=== PATIENT | female | born 1965 | race Two or more races ===

== ENCOUNTER 2019-05-09 19:29 | Emergency (ER) | payer SELFPAY ==
[~2019-05-09] VITALS: Ht 167.6 cm; Wt 63.5 kg
[2019-05-09] MEDS ORDERED: ONDANSETRON PF 4 MG/2 ML VIAL. IV ONE (20:15)
[2019-05-09] MEDS ORDERED: MORPHINE SULFATE 2 MG/ML VIAL. IV ONE (20:15)
[2019-05-09] MEDS ORDERED: IV NORMAL SALINE 1000ML BAG 1,000 ML IV ONE (20:15)
[2019-05-09 20:16] LABS: BILIRUBIN,URINE NEGATIVE (NEG); CLARITY,URINE CLEAR; COLOR,URINE YELLOW; NITRITE,URINE NEGATIVE (NEG); PH,URINE 6.5; PROTEIN,URINE NEGATIVE (NEG-TRACE); UROBILINOGEN,URINE 0.2 mg/dL (0.2 mg/dL)
[2019-05-09 20:19] LABS: AMPHETAMINE/METHAMPHETAMINE NEG (NEG); BARBITURATES NEG (NEG); BENZODIAZEPINES NEG (NEG); CANNABINOIDS NEG (NEG); COCAINE NEG (NEG); METHADONE NEG (NEG); OPIATES NEG (NEG); PHENCYCLIDINE NEG (NEG)
[2019-05-09 20:22] LABS: SQUAMOUS EPITHELIAL CELL,UR FEW /LPF
[2019-05-09 20:24] LABS: BASO # 0.1 x10^3/uL (0.0-0.2); BASO % 1 % (0-3); EOS # 0.3 x10^3/uL (0.0-0.7); EOS % 3 % (0-3); HEMATOCRIT 38.4 % (36.0-47.0); HEMOGLOBIN 12.7 g/dL (12.0-15.5); LYMPH % 39 % (24-48); MEAN CORPUSCULAR HEMOGLOBIN 26 pg (25-35); MEAN CORPUSCULAR HGB CONC 33 g/dL (31-37); MEAN CORPUSCULAR VOLUME 78 fL (79-100); MONO # 0.9 x10^3/uL (0.0-1.1); MONO % 9 % (0-9); NEUT # 4.8 x10^3/uL (1.8-7.7); NEUT % 47 % (31-73); PLATELET COUNT 344 x10^3/uL (140-400); RED BLOOD COUNT 4.94 x10^6/uL (3.50-5.40); RED CELL DISTRIBUTION WIDTH 14.6 % (11.5-14.5); WHITE BLOOD COUNT 10.3 x10^3/uL (4.0-11.0)
[2019-05-09 20:27] LABS: BACTERIA,URINE FEW /HPF (0-FEW); RBC,URINE 0 /HPF (0-2)
[2019-05-09] MEDS ORDERED: cefTRIAXone IV Push 1 GM VIAL. IVP ONE (21:00)
[2019-05-09 22:43] LABS: CALCIUM 8.6 mg/dL (8.5-10.1); CREATININE 0.6 mg/dL (0.6-1.0); GFR 104.6; POTASSIUM 4.1 mmol/L (3.5-5.1)
[2019-05-09 22:48] LABS: ALBUMIN 3.5 g/dL (3.4-5.0); ALBUMIN/GLOBULIN RATIO 0.9 (1.0-1.7); TOTAL BILIRUBIN 0.2 mg/dL (0.2-1.0); TOTAL PROTEIN 7.6 g/dL (6.4-8.2)
[2019-05-09] MEDS ORDERED: CEPH500T PO (22:55)
--- NOTE | 2019-05-09 22:55 | PHYS DOC ---
Past Medical History Past Medical History: No Pertinent History Past Surgical History: No Surgical History Alcohol Use: None Drug Use: None Adult General Chief Complaint Chief Complaint: ABDOMINAL PAIN HPI HPI Patient is a 53 year old Female with no significant medical history who presents to the ED today complaining of 8 out of 10 left flank pain radiating to the left lower quadrant that began 2-3 days ago. She describes the pain as sharp and intermittent, denies any exacerbating or relieving factors. Denies any nausea vomiting. Denies any personal history of kidney stones. Denies any hematuria. Review of Systems Review of Systems Constitutional: Denies fever or chills [] Eyes: Denies change in visual acuity, redness, or eye pain [] HENT: Denies nasal congestion or sore throat [] Respiratory: Denies cough or shortness of breath [] Cardiovascular: No additional information not addressed in HPI [] GI: reports left lower quadrant abdominal pain, deniesnausea, vomiting, bloody stools or diarrhea [] : Reports left flank pain.Denies dysuria or hematuria [] Musculoskeletal: Denies back pain or joint pain [] Integument: Denies rash or skin lesions [] Neurologic: Denies headache, focal weakness or sensory changes [] All other systems were reviewed and found to be within normal limits, except as documented in this note. Current Medications Current Medications Current Medications Medications (Trade) Dose Ordered Sig/Adina Start Time Stop Time Status Last Admin Dose Admin Ceftriaxone Sodium (Rocephin) 1 gm 1X ONCE 05/09/19 21:00 05/09/19 21:01 DC 05/09/19 21:56 1 GM Morphine Sulfate (Morphine Sulfate) 2 mg 1X ONCE 05/09/19 20:15 05/09/19 20:19 DC 05/09/19 20:31 2 MG Ondansetron HCl (Zofran) 4 mg 1X ONCE 05/09/19 20:15 05/09/19 20:19 DC 05/09/19 20:31 4 MG Sodium Chloride 1,000 ml @ 1,000 mls/hr 1X ONCE 05/09/19 20:15 05/09/19 21:14 DC 05/09/19 20:31 1,000 MLS/HR Allergies Allergies Allergies Coded Allergies Type Severity Reaction Last Updated Verified No Known Drug Allergies 05/09/19 No Physical Exam Physical Exam Constitutional: Well developed, well nourished, no acute distress, non-toxic appearance. [] HENT: Normocephalic, atraumatic, bilateral external ears normal, oropharynx moist, no oral exudates, nose normal. [] Eyes: PERRLA, EOMI, conjunctiva normal, no discharge. [] Neck: Normal range of motion, no tenderness, supple, no stridor. [] Cardiovascular:Heart rate regular rhythm, no murmur [] Lungs & Thorax: Bilateral breath sounds clear to auscultation [] Abdomen: Bowel sounds normal, soft, no tenderness, no masses, no pulsatile masses. [] Skin: Warm, dry, no erythema, no rash. [] Back: No tenderness,mild left CVA tenderness. [] Extremities: No tenderness, no cyanosis, no clubbing, ROM intact, no edema. [] Neurologic: Alert and oriented X 3, normal motor function, normal sensory function, no focal deficits noted. [] Psychologic: Affect normal, judgement normal, mood normal. [] Current Patient Data Vital Signs Vital Signs Date Time Temp Pulse Resp B/P (MAP) Pulse Ox O2 Delivery O2 Flow Rate FiO2 05/09/19 20:31 16 98 Room Air 05/09/19 19:52 97.7 73 138/76 (96) 97.7 Lab Values Laboratory Tests Test 05/09/19 20:00 05/09/19 20:15 05/09/19 21:55 Urine Collection Type Unknown Urine Color Yellow Urine Clarity Clear Urine pH 6.5 Urine Specific [place] 1.010 Urine Protein Negative mg/dL (NEG-TRACE) Urine Glucose (UA) Negative mg/dL (NEG) Urine Ketones (Stick) Negative mg/dL (NEG) Urine Blood Small (NEG) Urine Nitrite Negative (NEG) Urine Bilirubin Negative (NEG) Urine Urobilinogen Dipstick 0.2 mg/dL (0.2 mg/dL) Urine Leukocyte Esterase Moderate (NEG) Urine RBC 0 /HPF (0-2) Urine WBC 1-4 /HPF (0-4) Urine Squamous Epithelial Cells Few /LPF Urine Bacteria Few /HPF (0-FEW) Urine Opiates Screen Neg (NEG) Urine Methadone Screen Neg (NEG) Urine Barbiturates Neg (NEG) Urine Phencyclidine Screen Neg (NEG) Urine Amphetamine/Methamphetamine Neg (NEG) Urine Benzodiazepines Screen Neg (NEG) Urine Cocaine Screen Neg (NEG) Urine Cannabinoids Screen Neg (NEG) Urine Ethyl Alcohol Neg (NEG) White Blood Count 10.3 x10^3/uL (4.0-11.0) Red Blood Count 4.94 x10^6/uL (3.50-5.40) Hemoglobin 12.7 g/dL (12.0-15.5) Hematocrit 38.4 % (36.0-47.0) Mean Corpuscular Volume 78 fL (79-100) L Mean Corpuscular Hemoglobin 26 pg (25-35) Mean Corpuscular Hemoglobin Concent 33 g/dL (31-37) Red Cell Distribution Width 14.6 % (11.5-14.5) H Platelet Count 344 x10^3/uL (140-400) Neutrophils (%) (Auto) 47 % (31-73) Lymphocytes (%) (Auto) 39 % (24-48) Monocytes (%) (Auto) 9 % (0-9) Eosinophils (%) (Auto) 3 % (0-3) Basophils (%) (Auto) 1 % (0-3) Neutrophils # (Auto) 4.8 x10^3/uL (1.8-7.7) Lymphocytes # (Auto) 4.0 x10^3/uL (1.0-4.8) Monocytes # (Auto) 0.9 x10^3/uL (0.0-1.1) Eosinophils # (Auto) 0.3 x10^3/uL (0.0-0.7) Basophils # (Auto) 0.1 x10^3/uL (0.0-0.2) Sodium Level 140 mmol/L (136-145) Potassium Level 4.1 mmol/L (3.5-5.1) Chloride Level 106 mmol/L (98-107) Carbon Dioxide Level 23 mmol/L (21-32) Anion Gap 11 (6-14) Blood Urea Nitrogen 13 mg/dL (7-20) Creatinine 0.6 mg/dL (0.6-1.0) Estimated GFR (Cockcroft-Gault) 104.6 BUN/Creatinine Ratio 22 (6-20) H Glucose Level 93 mg/dL (70-99) Calcium Level 8.6 mg/dL (8.5-10.1) Total Bilirubin 0.2 mg/dL (0.2-1.0) Aspartate Amino Transferase (AST) 16 U/L (15-37) Alanine Aminotransferase (ALT) 25 U/L (14-59) Alkaline Phosphatase 86 U/L (46-116) Total Protein 7.6 g/dL (6.4-8.2) Albumin 3.5 g/dL (3.4-5.0) Albumin/Globulin Ratio 0.9 (1.0-1.7) L Lipase 151 U/L (73-393) Ethyl Alcohol Level < 10 mg/dL (0-10) Laboratory Tests 05/09/19 20:15 Laboratory Tests 05/09/19 21:55 EKG EKG [] Radiology/Procedures Radiology/Procedures [] Course & Med Decision Making Course & Med Decision Making Pertinent Labs and Imaging studies reviewed. (See chart for details) This is a 53-year-old female patient presenting to the ED today with left flank pain radiating to the left lower quadrant for 2-3 days. CBC with a normal WBC, CMP with no acute findings, urine analysis is noted for moderate amount of leukocytes. Patient was discharged on cephalexin, given Rocephin in the ED. Instructed to push fluids. Follow-up with PCP in 1-2 weeks. Dragon Disclaimer Dragon Disclaimer This electronic medical record was generated, in whole or in part, using a voice recognition dictation system. Departure Departure Impression: Primary Impression: Urinary tract infection Disposition: 01 HOME, SELF-CARE Condition: STABLE Referrals: UNKNOWN PCP NAME (PCP) follow up in one week with your doctor Patient Instructions: Urinary Tract Infection Additional Instructions: You were evaluated in the emergency room and noted to have infection in your urine. We'll put you on antibiotics, ensure you complete them. Please take Tylenol/Motrin for pain or fever, push fluids. Follow-up with your own doctor in the course of this week or next week. Scripts Cephalexin (CEPHALEXIN) 500 Mg Tablet 1 TAB PO BID, #14 TAB Prov: JERRI PARMAR APRN 05/09/19 Problem Qualifiers Primary Impression: Urinary tract infection Urinary tract infection type: site unspecified Hematuria presence: without hematuria Qualified Codes: N39.0 - Urinary tract infection, site not specified JERRI PARMAR APRN May 09, 2019 22:55
[2019-05-09 23:00] VITALS: BP 114/64
== END 2019-05-09 23:07 | disposition home or self-care (01) ==
LOC: ER 19:29
DX: N39.0 Urinary tract infection, site not specified (principal); R10.32 Left lower quadrant pain; Z79.899 Other long term (current) drug therapy
CPT/HCPCS: 36415; 80053; 80307; 81001; 83690; 85025; 87086; 96374; 96375; 99284; G0480; J0696; J2270; J2405; J7030

== ENCOUNTER 2019-07-08 09:30 | Emergency (ER) | payer SELFPAY ==
[~2019-07-08] VITALS: Ht 157.5 cm; Wt 71.0 kg
[~2019-07-08 09:30] MED LIST: CEPH500T PO
[2019-07-08] MEDS ORDERED: ONDANSETRON PF 4 MG/2 ML VIAL. IV ONE (10:15)
[2019-07-08] MEDS ORDERED: fentaNYL PF VIAL 100 MCG/2 ML VIAL IV ONE (10:15)
[2019-07-08] MEDS ORDERED: IV NORMAL SALINE 1000ML BAG 1,000 ML IV ONE (10:15)
--- NOTE | 2019-07-08 10:17 | PHYS DOC ---
Past Medical History Past Medical History: No Pertinent History Past Surgical History: No Surgical History Smoking Status: Never Smoker Alcohol Use: None Drug Use: None Adult General Chief Complaint Chief Complaint: ABDOMINAL PAIN HPI HPI Patient is a 54 year old female who presents with abdominal pain is located in her periumbilical region of her abdomen, and radiates up to the left upper quad rant this been ongoing for 3 weeks. The patient states the pain is sharp, constant and she rates it 8 out of 10 in severity. The patient also states she's had associated symptoms include nausea, and every once while she has chills. The patient denies any fevers, vomiting, or diarrhea. Complete ROS were reviewed and found to be within normal limits, except as documented in the HPI Current Medications Current Medications Current Medications Medications (Trade) Dose Ordered Sig/Adina Start Time Stop Time Status Last Admin Dose Admin Fentanyl Citrate (Fentanyl 2ml Vial) 75 mcg 1X ONCE 07/08/19 10:15 07/08/19 10:16 DC 07/08/19 10:33 75 MCG Iohexol (Omnipaque 300 Mg/ml) 75 ml 1X ONCE 07/08/19 10:30 07/08/19 10:31 DC 07/08/19 10:30 75 ML Ondansetron HCl (Zofran) 4 mg 1X ONCE 07/08/19 10:15 07/08/19 10:16 DC 07/08/19 10:32 4 MG Sodium Chloride 1,000 ml @ 1,000 mls/hr 1X ONCE 07/08/19 10:15 07/08/19 11:14 DC 07/08/19 10:30 1,000 MLS/HR Allergies Allergies Allergies Coded Allergies Type Severity Reaction Last Updated Verified No Known Drug Allergies 05/09/19 No Physical Exam Physical Exam Constitutional: Well developed, well nourished, no acute distress, non-toxic appearance. [] HENT: Normocephalic, atraumatic, bilateral external ears normal, oropharynx moist, no oral exudates, nose normal. [] Eyes: PERRLA, EOMI, conjunctiva normal, no discharge. [] Neck: Normal range of motion, no tenderness, supple, no stridor. [] Cardiovascular:Heart rate regular rhythm, no murmur [] Lungs & Thorax: Bilateral breath sounds clear to auscultation [] Abdomen: Bowel sounds normal, soft, periumbilical tenderness, LUQ tenderness, no masses, no pulsatile masses. [] Skin: Warm, dry, no erythema, no rash. [] Neurologic: Alert and oriented X 3, normal motor function, normal sensory function, no focal deficits noted. [] Psychologic: Affect normal, judgement normal, mood normal. [] Current Patient Data Vital Signs Vital Signs Date Time Temp Pulse Resp B/P (MAP) Pulse Ox O2 Delivery O2 Flow Rate FiO2 07/08/19 10:33 16 99 Room Air 07/08/19 10:10 98.0 16 133/64 (87) 98.0 Lab Values Laboratory Tests Test 07/08/19 10:02 07/08/19 11:28 White Blood Count 7.5 x10^3/uL (4.0-11.0) Red Blood Count 4.80 x10^6/uL (3.50-5.40) Hemoglobin 12.4 g/dL (12.0-15.5) Hematocrit 37.3 % (36.0-47.0) Mean Corpuscular Volume 78 fL (79-100) L Mean Corpuscular Hemoglobin 26 pg (25-35) Mean Corpuscular Hemoglobin Concent 33 g/dL (31-37) Red Cell Distribution Width 14.4 % (11.5-14.5) Platelet Count 317 x10^3/uL (140-400) Neutrophils (%) (Auto) 55 % (31-73) Lymphocytes (%) (Auto) 31 % (24-48) Monocytes (%) (Auto) 10 % (0-9) H Eosinophils (%) (Auto) 3 % (0-3) Basophils (%) (Auto) 1 % (0-3) Neutrophils # (Auto) 4.1 x10^3/uL (1.8-7.7) Lymphocytes # (Auto) 2.3 x10^3/uL (1.0-4.8) Monocytes # (Auto) 0.7 x10^3/uL (0.0-1.1) Eosinophils # (Auto) 0.2 x10^3/uL (0.0-0.7) Basophils # (Auto) 0.1 x10^3/uL (0.0-0.2) Urine Collection Type Void Urine Color [place] Urine Clarity Cloudy Urine pH 6.0 Urine Specific [place] >=1.030 Urine Protein Negative mg/dL (NEG-TRACE) Urine Glucose (UA) Negative mg/dL (NEG) Urine Ketones (Stick) Negative mg/dL (NEG) Urine Blood Negative (NEG) Urine Nitrite Negative (NEG) Urine Bilirubin Negative (NEG) Urine Urobilinogen Dipstick 0.2 mg/dL (0.2 mg/dL) Urine Leukocyte Esterase Moderate (NEG) Urine RBC Occ /HPF (0-2) Urine WBC 5-10 /HPF (0-4) Urine Squamous Epithelial Cells Many /LPF Urine Bacteria Moderate /HPF (0-FEW) Urine Mucus Mod /LPF Sodium Level 146 mmol/L (136-145) H Potassium Level 3.7 mmol/L (3.5-5.1) Chloride Level 106 mmol/L (98-107) Carbon Dioxide Level 27 mmol/L (21-32) Anion Gap 13 (6-14) Blood Urea Nitrogen 14 mg/dL (7-20) Creatinine 0.6 mg/dL (0.6-1.0) Estimated GFR (Cockcroft-Gault) 104.2 BUN/Creatinine Ratio 23 (6-20) H Glucose Level 97 mg/dL (70-99) Calcium Level 8.9 mg/dL (8.5-10.1) Total Bilirubin 0.4 mg/dL (0.2-1.0) Aspartate Amino Transferase (AST) 15 U/L (15-37) Alanine Aminotransferase (ALT) 27 U/L (14-59) Alkaline Phosphatase 95 U/L (46-116) Total Protein 7.5 g/dL (6.4-8.2) Albumin 3.7 g/dL (3.4-5.0) Albumin/Globulin Ratio 1.0 (1.0-1.7) Lipase 104 U/L (73-393) POC Urine HCG, Qualitative Hcg negative (Negative) Laboratory Tests 07/08/19 10:02 Laboratory Tests 07/08/19 10:02 EKG EKG [] Radiology/Procedures Radiology/Procedures [] IMAGING REPORT Signed PATIENT: SALBADOR MADRIDACCOUNT: [id number] : 1965 LOCATION: ER AGE: 54 SEX: F EXAM STATUS: REG ER ORD. PHYSICIAN: QAMAR WOODARD APRN REASON: abd pain, periumbilical, LUQ PROCEDURE: CT ABD PELV W/ IV CONTRST ONLY CT abdomen pelvis with contrast dated 07/08/2019. No comparison available. Clinical data indication: Periumbilical pain and left lower quadrant pain. TECHNIQUE: Per contiguous axial imaging the M pelvis performed after the administration of 75 cc Omni 300. FINDINGS: Limited images of lung bases are clear. Heart size within normal limits. No pleural or pericardial effusion. Liver, spleen, pancreas, adrenal glands, gallbladder and kidneys are unremarkable. No hydronephrosis. Unopacified GI tract normal in caliber and contour. No focal bowel wall thickening. No inflammatory stranding in the mesentery. No ascites or lymphadenopathy. Abdominal aorta normal in caliber. Appendix normal in caliber. Images of pelvis show nondistended urinary bladder. Uterus and adnexa unremarkable. There is a 1.7 cm right ovarian cyst. No free fluid or pelvic lymphadenopathy. Bone windows show no acute findings. IMPRESSION: 1. No acute abnormality of abdomen or pelvis. Normal appendix. 2. Small right ovarian cyst. Electronically signed by: Qamar Pemberton MD (07/08/2019 11:41 AM) [id number] DICTATED and SIGNED BY: QAMAR PEMBERTON MD DATE: 07/08/19 1141 Course & Med Decision Making Course & Med Decision Making Pertinent Labs and Imaging studies reviewed. (See chart for details) Will get CT, labs, UA, and give supportive care. CT is unremarkable with exception of ovarian cyst. Urine shows leukocytes. Will place on Keflex. Labs are unremarkable for acute changes. Dragon Disclaimer Conrad Disclaimer This electronic medical record was generated, in whole or in part, using a voice recognition dictation system. Departure Departure Impression: Primary Impression: Urinary tract infection Additional Impression: Ovarian cyst Disposition: 01 HOME, SELF-CARE Condition: STABLE Referrals: UNKNOWN PCP NAME (PCP) RODNEY SANTANA MD Patient Instructions: Ovarian Cyst, Urinary Tract Infection Additional Instructions: Thank you for visiting [facility]. We appreciate you trusting us with your care. If any additional problems come up [facility]'t [facility] Please follow up with your primary care provider so they can plan additional care if needed and know about the problem that you had. If symptoms worsen come back to the Emergency Department. Any concerning symptoms that start such as chest pain, shortness of air, weakness or numbness on one side of the body, running high fevers or any other concerning symptoms return to the ER. You have been prescribed an antibiotic today to help fight your infection. Please take all of the antibiotic as directed. If after 48 hours the infection is not improving, please return for more care. If the infection worsens, return to ER for additional care. Scripts Cephalexin (KEFLEX) 500 Mg Capsule 1 CAP PO BID for 7 Days, #14 CAP 0 Refills Prov: QAMAR WOODARD APRN 07/08/19 Problem Qualifiers QAMAR WOODARD APRN Jul 08, 2019 10:17
[2019-07-08] MEDS ORDERED: IOHEXOL 300 MG/ML 100ML VIAL. IV ONE (10:30)
[2019-07-08 10:35] LABS: BASO # 0.1 x10^3/uL (0.0-0.2); BASO % 1 % (0-3); EOS # 0.2 x10^3/uL (0.0-0.7); EOS % 3 % (0-3); HEMATOCRIT 37.3 % (36.0-47.0); HEMOGLOBIN 12.4 g/dL (12.0-15.5); LYMPH # 2.3 x10^3/uL (1.0-4.8); LYMPH % 31 % (24-48); MEAN CORPUSCULAR HEMOGLOBIN 26 pg (25-35); MEAN CORPUSCULAR HGB CONC 33 g/dL (31-37); MEAN CORPUSCULAR VOLUME 78 fL (79-100); MONO # 0.7 x10^3/uL (0.0-1.1); MONO % 10 % (0-9); NEUT # 4.1 x10^3/uL (1.8-7.7); NEUT % 55 % (31-73); PLATELET COUNT 317 x10^3/uL (140-400); RED CELL DISTRIBUTION WIDTH 14.4 % (11.5-14.5); WHITE BLOOD COUNT 7.5 x10^3/uL (4.0-11.0)
[2019-07-08 10:37] LABS: BILIRUBIN,URINE NEGATIVE (NEG); CLARITY,URINE CLOUDY; COLOR,URINE AMBER; NITRITE,URINE NEGATIVE (NEG); PROTEIN,URINE NEGATIVE (NEG-TRACE); UROBILINOGEN,URINE 0.2 mg/dL (0.2 mg/dL)
[2019-07-08 10:55] LABS: SQUAMOUS EPITHELIAL CELL,UR MANY /LPF
[2019-07-08 10:56] LABS: BACTERIA,URINE MODERATE /HPF (0-FEW); RBC,URINE OCC /HPF (0-2)
[2019-07-08 10:59] LABS: CALCIUM 8.9 mg/dL (8.5-10.1); CREATININE 0.6 mg/dL (0.6-1.0); GFR 104.2; POTASSIUM 3.7 mmol/L (3.5-5.1)
[2019-07-08 11:04] LABS: ALBUMIN 3.7 g/dL (3.4-5.0); TOTAL BILIRUBIN 0.4 mg/dL (0.2-1.0); TOTAL PROTEIN 7.5 g/dL (6.4-8.2)
--- NOTE | 2019-07-08 11:44 | RAD ---
CT abdomen pelvis with contrast dated 07/08/2019. No comparison available. Clinical data indication: Periumbilical pain and left lower quadrant pain. TECHNIQUE: Per contiguous axial imaging the M pelvis performed after the administration of 75 cc Omni 300. FINDINGS: Limited images of lung bases are clear. Heart size within normal limits. No pleural or pericardial effusion. Liver, spleen, pancreas, adrenal glands, gallbladder and kidneys are unremarkable. No hydronephrosis. Unopacified GI tract normal in caliber and contour. No focal bowel wall thickening. No inflammatory stranding in the mesentery. No ascites or lymphadenopathy. Abdominal aorta normal in caliber. Appendix normal in caliber. Images of pelvis show nondistended urinary bladder. Uterus and adnexa unremarkable. There is a 1.7 cm right ovarian cyst. No free fluid or pelvic lymphadenopathy. Bone windows show no acute findings. IMPRESSION: 1. No acute abnormality of abdomen or pelvis. Normal appendix. 2. Small right ovarian cyst. Electronically signed by: Qamar Pemberton MD (07/08/2019 11:41 AM) [id number]
[2019-07-08] MEDS ORDERED: CEPH-264 PO (11:52)
[2019-07-08 12:00] VITALS: BP 122/73
== END 2019-07-08 12:02 | disposition home or self-care (01) ==
LOC: ER 09:30
DX: N39.0 Urinary tract infection, site not specified (principal); N83.201 Unspecified ovarian cyst, right side; R10.33 Periumbilical pain; R11.0 Nausea; R68.83 Chills (without fever)
CPT/HCPCS: 36415; 74177; 80053; 81001; 81025; 83690; 85025; 87086; 96374; 96375; 99285; J2405; J3010; J7030; Q9967

== ENCOUNTER → 2019-11-20 | Outpatient (CLI) | payer OTHER ==
[~2019-11-20] MED LIST changes: +CEPH-264 PO
--- NOTE | 2019-11-20 14:39 | RAD ---
CT scan abdomen and pelvis without contrast 11/20/2019 CLINICAL HISTORY: Left lower quadrant abdominal pain. TECHNIQUE: Unenhanced, contiguous, 2 mm axial sections were obtained through abdomen and pelvis. One or more of the following individualized dose reduction techniques were utilized for this study: 1. Automated exposure control. 2. Adjustment of the mA and/or kV according to patient size. 3. Use of iterative reconstruction technique. FINDINGS: Comparison study is dated 07/08/2019. Images through the lung bases are within normal limits. The liver, spleen, pancreas, and adrenal glands are within normal limits. No renal or ureteral calculus is seen. There is no evidence of obstruction of either collecting system. Mild atherosclerotic calcification of the abdominal aorta is seen. The abdominal aorta tapers normally. The gallbladder is contracted. There is no evidence of bowel obstruction. The appendix is well-visualized and is within normal limits. Images through the pelvis demonstrate the urinary bladder distended with urine. Calcifications are seen within the pelvis consistent with phleboliths. No adnexal mass is seen. No free fluid is noted. Minimal S-shaped curvature of the thoracolumbar spine is seen. Degenerative changes are seen involving lower thoracic and throughout the lumbar spine along with both hips. IMPRESSION: No acute abnormality is seen. Electronically signed by: Pipe Muller MD (11/20/2019 2:36 PM) [id number]
== END | disposition home or self-care (01) ==
LOC: CT 12:03
PROVIDERS: ATTEND Family Medicine
DX: N83.291 Other ovarian cyst, right side (principal); N92.0 Excessive and frequent menstruation with regular cycle; N28.89 Other specified disorders of kidney and ureter; E78.5 Hyperlipidemia, unspecified; I70.0 Atherosclerosis of aorta; M43.8X5 Other specified deforming dorsopathies, thoracolumbar region; M47.895 Other spondylosis, thoracolumbar region
CPT/HCPCS: 74176

== ENCOUNTER → 2021-05-17 | Outpatient (CLI) | payer OTHER ==
[~2021-05-17] MED LIST changes: +GADOTERATE 7.5 MMOL/15ML VIAL. IVP ONE
--- NOTE | 2021-05-17 18:31 | RAD ---
STUDY: MRI of the right shoulder with and without contrast INDICATION: Right shoulder pain. Chondral lesion. COMPARISON: None. TECHNIQUE: Multiplanar MR imaging of the right shoulder performed both prior to and after the intrave nous administration of 14 cc Clariscan. FINDINGS: The study is limited on account of motion. AC joint: Moderate AC joint arthrosis. Mild subacromial subdeltoid bursitis. Rotator cuff: High-grade tear of the supraspinatus leading edge at the footprint which appears to be bursal sided and measuring up to 5 mm mediolateral by 6 mm AP. Background hypertrophic tendinosis of the supraspinatus and of the infraspinatus to a lesser extent. The teres minor is intact as is the hayes bscapularis. Rotator cuff muscular bulk is maintained. Labrum: Appears intact considering limited evaluation by technique and motion. Long head biceps tendon: Intact and normally located. Cartilage: No well delineated high-grade/full-thickness chondral defect. Bones: Lobulated lesion with heterogeneous T2 signal and enhancement centered within the humeral meta physis below the physeal scar and extending downward just below the surgical neck. Small intermixed f oci of T1 and T2 hypointense signal similar to cortex but much of the abnormality is intermediate T1 similar to skeletal muscle. Portions of the lesion abut the humeral cortex without extraosseous exten broderick or definitive endosteal scalloping. At the more anterior humeral head such as on image 14 series 7001 there is a narrow zone of transition but more posteriorly borders are indistinct. The collectiv e abnormality is difficult to measure but the region of involvement measures up to 2.6 cm AP by 2.7 c m craniocaudal by 2.2 cm transverse. Surrounding marrow signal is heterogeneous but without perilesio nal edema based on the sagittal T2 sequence which is less affected by motion. Miscellaneous: Only a small amount of joint fluid. Mild subcoracoid bursitis in conjunction with suba cromial/subdeltoid bursitis. Edema-like signal at the rotator interval. Within normal limits axillary recess. No pathologically enlarged axillary lymph nodes which are subcentimeter short axis. Impression: 1. Heterogeneous signal abnormality centered within the humeral metaphysis with features most sugges tive of an enchondroma at measures approximately 2.6 x 2.7 x 2.2 cm. A portion of the lesion exhibits a narrow zone of transition but some areas are less well-defined. No extraosseous extension, periles ional edema or obvious endosteal scalloping to help suggest an chondrosarcoma. Given that there are a lternative sources of pain at the right shoulder, as discussed below, ongoing follow-up is recommende d to confirm stability such as MRI in 6 months. If radiographs have not been performed they are recom mended to establish a baseline. 2. Focal high-grade tear of the supraspinatus leading edge at the footprint which appears to be burs al sided but the study is limited by motion. The tear defect measures 5 x 6 mm. Background supraspina tus more so than infraspinatus tendinosis. 3. Mild subacromial subdeltoid and subcoracoid bursitis. Moderate arthrosis at the AC joint. Nonspec ific edema at the rotator interval but this can be seen with adhesive capsulitis. Electronically signed by: YANIRA ROBB MD (05/17/2021 6:28 PM) [id number]
== END ==
LOC: MRI 11:20
PROVIDERS: ATTEND Family Medicine
DX: M94.9 Disorder of cartilage, unspecified (principal); M75.101 Unspecified rotator cuff tear or rupture of right shoulder, not specified as traumatic; M75.51 Bursitis of right shoulder; M19.011 Primary osteoarthritis, right shoulder
CPT/HCPCS: 73223; A9575